=== PATIENT | male | born 1970 | race Caucasian/White ===

== ENCOUNTER 2023-09-02 14:59 | Emergency (ER) | payer OTHER, SELFPAY ==
[2023-09-02 15:05] VITALS: BP 160/88; PULSE 70; TEMP 37.1; O2SAT 96; BMI 36.6
--- NOTE | 2023-09-02 15:19 | CT_ITS ---
The [address] [address] Patient Name: BHAKTI MCCORMACK MRN: [id number] date: 1970 Sex: M Assigned Patient Location: ER Current Patient Location: ER Accession/Order Number: [id number] Exam Date: 09/02/2023 15:51 Report Date: 09/02/2023 16:34 At the request of: PIEDAD FAM Procedure: CT head/brain wo con EXAM: CT head/brain wo con HISTORY: left facial numbness COMPARISON: None. TECHNIQUE: CT head without contrast. Multiplanar reformats obtained. The current study utilizes one or more of the following dose-reduction techniques: automated exposure control, iterative reconstruction, and/or manual adjustment of tube current and voltage for size. FINDINGS: No acute intracranial hemorrhage. No midline shift. [place]-white matter differentiation is maintained. Basal cisterns patent. Ventricles reflect volume loss. No displaced skull fracture. Mastoid air cells are partially imaged and clear. Paranasal sinuses are partially imaged and clear. CT/CT head/brain wo con IMPRESSION: No acute intracranial findings. CT is insensitive for acute infarct. Electronically authenticated by: JASON HUIZAR Date: 09/02/2023 16:34
[2023-09-02 15:40] LABS: Basophils Percent Auto 0.5 % (0.2-2.0); Eosinophils Absolute Auto 0.2 10^3/uL (0.0-0.7); Eosinophils Percent Auto 2.7 % (0.9-7.0); Hematocrit 41.7 % (42.0-54.0); Hemoglobin 14.8 g/dL (14.0-18.0); Immature Granulocytes Abs Auto 0.01 10^3/uL (0.00-0.03); Immature Granulocytes Pct Auto 0.2 % (0.0-0.5); Lymphocytes Absolute Auto 1.3 10^3/uL (1.2-3.8); Lymphocytes Percent Auto 22.4 % (20.5-60.0); Mean Corpuscular HGB Conc 35.5 g/dL (29.9-35.2); Mean Corpuscular Hemoglobin 31.6 pg (25.9-34.0); Mean Corpuscular Volume 89.1 fL (80.0-94.0); Monocytes Absolute Auto 0.6 10^3/uL (0.3-0.8); Monocytes Percent Auto 9.4 % (1.7-12.0); Neutrophils Absolute Auto 3.9 10^3/uL (1.4-6.5); Neutrophils Percent Auto 64.8 % (43.0-75.0); Platelet Count 141 10^3/uL (150-450); Red Blood Count 4.68 10^6/uL (4.70-6.10); Red Cell Distribution Width 12.6 % (11.0-15.0); White Blood Count 5.9 10^3/uL (4.0-11.0)
--- NOTE | 2023-09-02 15:50 | ED_ITS ---
HPI HPI - General Adult General Chief complaint: Weakness Stated complaint: Facial Swelling Time Seen by Provider: 09/02/23 15:06 Source: patient Mode of arrival: walk-in Limitations: no limitations History of Present Illness HPI narrative: The patient is coming to the ER with a left-sided facial weakness that he noticed yesterday he also mentioned that he noticed some left ear pain at the same time, no difficulty hearing no runny nose no fever no chills no other concerns, The patient denies any headache or any upper or lower extremity weakness he mentioned that he noted this when he was eating some chicken wings, Related Data Home Medications ?Medication ?Instructions ?Recorded ?Confirmed lisinopril 40 mg tablet 40 mg PO DAILY 09/02/23 09/02/23 Previous Rx's ?Medication ?Instructions ?Recorded artificial tears(hypromellose) 0.3 2 drp ophthalmic (eye) Q2H PRN dry 09/02/23 % eye drops eye(s) #30 mL artificial tears(hypromellose) 0.3 1 drp ophthalmic (eye) .QHS #10 09/02/23 % eye gel grams prednisone 20 mg tablet 60 mg (3 x 20 mg) PO DAILY 5 days 09/02/23 #15 tabs Allergies Allergy/AdvReac Type Severity Reaction Status Date / Time No Known Drug Allergies Allergy Verified 09/02/23 15:08 Opioid HPI Opioid Management Most Recent Opioid Data: No Data to Display Review of Systems ROS Status of ROS 10 or more systems reviewed and unremark able except as noted in history and below Exam Narrative Exam Narrative: Nurses notes and vital signs reviewed and patient is not hypoxic. General: Well-appearing and in no apparent distress. Skin: Warm, dry, no pallor noted. No rash. Head: Normocephalic, atraumatic. Neck: Supple, non-tender. Eye: Pupils are equal, round and EOMI. No scleral icterus. Ears, Nose, Mouth, and Throat: TM are clear, no nasal mucosal hypertrophy. Oral mucosa is moist, no posterior oropharynx erythema, uvula is mid-line Cardiovascular: Regular Rate and Rhythm without murmur, gallop or rub. Respiratory: No accessory muscle use or respiratory distress. Lungs are clear to auscultation, no wheezing, rales or rhonchi Chest Wall: no tenderness Back: No midline thoracic or lumbar vertebral tenderness. No CVA tenderness Musculoskeletal: normal ROM, no calf or popliteal tenderness, no lower extremity edema/swelling GI: Abdomen is soft, non-distended. Normal bowel sounds. No masses appreciated. No tenderness to palpation. No rebound, guarding, or rigidity noted. Neurological: A&O x4. Left-sided facial weakness in the area covering the facial nerve in the upper and lower part of the face on the left side there is no rashes , no truncal ataxia. Moves all extremities. Sensation intact. Psychiatric: Cooperative and interactive. Normal mood and affect. Constitutional Vital Signs, click to edit/add: Last Vital Signs Temp 98.8 F 09/02/23 15:05 Pulse 84 09/02/23 16:24 Resp 18 09/02/23 16:24 BP 130/84 09/02/23 16:24 Pulse Ox 98 09/02/23 16:24 O2 Del Method Room Air 09/02/23 15:05 Course Vital Signs Vital signs: Vital Signs Temperature 98.8 F 09/02/23 15:05 Pulse Rate 70 09/02/23 15:05 Respiratory Rate 18 09/02/23 15:05 Blood Pressure 160/88 H 09/02/23 15:05 Pulse Oximetry 96 09/02/23 15:05 Oxygen Delivery Method Room Air 09/02/23 15:05 Temperature 98.8 F 09/02/23 15:05 Pulse Rate 84 09/02/23 16:24 Respiratory Rate 18 09/02/23 16:24 Blood Pressure 130/84 09/02/23 16:24 Pulse Oximetry 98 09/02/23 16:24 Oxygen Delivery Method Room Air 09/02/23 15:05 Medical Decision Making [facility] Narrative Medical decision making narrative: The patient presentation is mostly secondary to Jones's palsy CT head showed no acute pathology as well as the blood workup although the patient had mild elevation of the LFTs He did mention that he drinks alcohol when he had his last drink yesterday Right now the patient 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 I did explain to the patient that his liver enzymes are elevated and that he have to follow-up with his primary care doctor for further evaluation hydrate well The patient is to follow up with primary care physician in next 2-3 days or to return to the emergency department should any of the signs or symptoms worsen or new symptoms develop. The patient agrees with the following Diagnosis and Treatment plan and the patient will be discharged home. Lab Data Labs: Lab Results 09/02/23 Range/Units 15:33 WBC 5.9 (4.0-11.0) 10^3/uL RBC 4.68 L (4.70-6.10) 10^6/uL Hgb 14.8 (14.0-18.0) g/dL Hct 41.7 L (42.0-54.0) % MCV 89.1 (80.0-94.0) fL MCH 31.6 (25.9-34.0) pg MCHC 35.5 H (29.9-35.2) g/dL RDW 12.6 (11.0-15.0) % Plt Count 141 L (150-450) 10^3/uL MPV 10.0 (9.5-13.5) fL Neut % (Auto) 64.8 (43.0-75.0) % Lymph % (Auto) 22.4 (20.5-60.0) % [place] % (Auto) 9.4 (1.7-12.0) % Eos % (Auto) 2.7 (0.9-7.0) % Baso % (Auto) 0.5 (0.2-2.0) % Neut # (Auto) 3.9 (1.4-6.5) 10^3/uL Lymph # (Auto) 1.3 (1.2-3.8) 10^3/uL [place] # (Auto) 0.6 (0.3-0.8) 10^3/uL Eos # (Auto) 0.2 (0.0-0.7) 10^3/uL Baso # (Auto) 0.0 (0.0-0.1) 10^3/uL Abs Immat Gran (auto) 0.01 (0.00-0.03) 10^3/uL Imm/Tot Granulo (auto) 0.2 (0.0-0.5) % Sodium 137 (136-145) mmol/L Potassium 4.1 (3.5-5.1) mmol/L Chloride 101 (98-107) mmol/L Carbon Dioxide 27.1 (21.0-32.0) mmol/L Anion Gap 13.0 BUN 16.0 (7.0-18.0) mg/dL Creatinine 1.24 (0.70-1.30) mg/dL Est GFR ( Amer) >60 (>=60) Est GFR (Non-Af Amer) >60 (>=60) BUN/Creatinine Ratio 12.9 Glucose 130 H (74-106) mg/dL Calcium 8.9 (8.5-10.1) mg/dL Total Bilirubin 0.4 (0.2-1.0) mg/dL AST 42 H (15-37) U/L ALT 75 H (16-63) U/L Alkaline Phosphatase 75 (46-116) U/L Total Protein 7.0 (6.4-8.2) g/dL Albumin 3.8 (3.4-5.0) g/dL Globulin 3.2 g/dL Albumin/Globulin Ratio 1.2 Discharge Plan Discharge Stand Alone Forms: Portal Instructions Chief Complaint: Weakness Clinical Impression: Jones's palsy Patient Disposition: Home, Self-Care Time of Disposition Decision: 17:03 Condition: Good Prescriptions / Home Meds: New prednisone 20 mg tablet 60 mg PO DAILY 5 Days Qty: 15 0RF artificial tears(hypromellose) 0.3 % drops 2 drp ophthalmic (eye) Q2H PRN (Reason: dry eye(s)) Qty: 30 0RF Rx Instructions: please apply to the left eye artificial tears(hypromellose) 0.3 % gel 1 drp ophthalmic (eye) .QHS Qty: 10 0RF Rx Instructions: please apply at night time No Action lisinopril 40 mg tablet 40 mg PO DAILY Print Language: Thai Instructions: Jones Palsy (ED) Referrals: YURIY ROLLINS [Primary Care Provider] - 1 week
[2023-09-02 15:53] LABS: Alanine Aminotransferase 75 U/L (16-63); Albumin Globulin Ratio 1.2; Albumin Level 3.8 g/dL (3.4-5.0); Alkaline Phosphatase 75 U/L (46-116); Aspartate Amino Transferase 42 U/L (15-37); BUN Creatinine Ratio 12.9; Bilirubin Total 0.4 mg/dL (0.2-1.0); Calcium 8.9 mg/dL (8.5-10.1); Carbon Dioxide 27.1 mmol/L (21.0-32.0); Chloride 101 mmol/L (98-107); Estimated GFR (African America >60 (>=60); Estimated GFR (Non-African Ame >60 (>=60); Globulin 3.2 g/dL; Glucose 130 mg/dL (74-106); Potassium 4.1 mmol/L (3.5-5.1); Sodium 137 mmol/L (136-145)
[2023-09-02] MEDS: METHYLPREDNISOLONE SOD SUCC PF 125 MG/2 ML VIAL IVP (16:20)
[2023-09-02 16:24] VITALS: BP 130/84; PULSE 84; O2SAT 98
== END 2023-09-02 17:12 | disposition home or self-care (01) ==
PROVIDERS: Emergency Provider Emergency Medicine; PCP Family Medicine
DX: G51.0 Bell's palsy (principal); Z79.899 Other long term (current) drug therapy
CPT/HCPCS: 36415; 70450; 80053; 85025; 96374; 99284; J2919